=== PATIENT | female | born 1965 | race Caucasian/White ===

== ENCOUNTER 2024-05-23 10:03 | Outpatient (CLI) | payer BC ==
[2024-05-23] MEDS ORDERED: Iopamidol 30 ML ONE (10:08)
== END 2024-05-23 10:04 | disposition home or self-care (01) ==
LOC: RAD 10:03
PROVIDERS: ATTEND Internal Medicine Hematology & Oncology
DX: C22.1 Intrahepatic bile duct carcinoma (principal)
CPT/HCPCS: 36598; J1642; Q9967

== ENCOUNTER 2024-10-21 10:08 | Outpatient (CLI) | payer BC ==
[2024-10-21] MEDS ORDERED: Iopamidol 30 ML ONE (10:22)
== END 2024-10-21 10:09 | disposition home or self-care (01) ==
LOC: RAD 10:08
PROVIDERS: ATTEND Internal Medicine Hematology & Oncology
DX: Z45.2 Encounter for adjustment and management of vascular access device (principal); C22.1 Intrahepatic bile duct carcinoma
CPT/HCPCS: 36598; J1642; Q9967

== ENCOUNTER 2024-11-18 09:55 | Outpatient (CLI) | payer BC | END 2024-11-18 09:56 | disposition home or self-care (01) | LOC: RAD 09:55 | PROVIDERS: ATTEND Internal Medicine Critical Care Medicine | DX: R06.00 Dyspnea, unspecified (principal) | CPT/HCPCS: 71046 ==

== ENCOUNTER 2024-11-27 15:03 | Emergency (ER) | payer BC ==
[2024-11-27 16:23] LABS: #Basophils 0.04 10x3/uL (0.0-0.2); %Basophils 0.4 % (0.0-1.0); %Eosinophils 0.4 % (0.0-10.0); %Monocytes 9.7 % (0.0-10.0); %Neutrophils 76.8 % (42.0-75.0); Hematocrit 27.8 % (36.0-47.0); Hemoglobin 9.4 g/dL (12.0-16.0); Mean Corpuscular HGB CONC 33.8 g/dL (32.0-36.0); Mean Corpuscular Hemoglobin 31.5 pg (27.0-31.0); Mean Corpuscular Volume 93.3 fL (78.0-98.0); Platelet Count 5 10x3/uL (130-400); RBC Distribution Width 18.2 % (11.5-14.5); Red Blood Cell (RBC) Count 2.98 mill/uL (4.20-5.40)
[2024-11-27 16:30] LABS: INR-International Normal Ratio 1.8; Prothrombin Time 21.1 sec (12.0-14.7)
[2024-11-27 16:31] LABS: PTT 31.8 sec (22.9-36.1)
[2024-11-27 16:52] LABS: ALT (SGPT) 34 U/L (8-55); AST (SGOT) 95 U/L (5-34); Albumin 2.8 g/dL (3.5-5.0); Alkaline Phosphatase 261 U/L (40-110); Anion Gap 12 mmol/L (10-20); BUN (Urea Nitrogen) 14 mg/dL (9.8-20.1); Bilirubin, Total 1.6 mg/dL (0.2-1.2); Calc. Creatinine Clearance 0 mL/min (70-130); Calcium 8.2 mg/dL (7.8-10.44); Carbon Dioxide 24 mmol/L (22-29); Chloride 94 mmol/L (98-107); Estimated GFR 108; Glucose 116 mg/dL (70-105); Potassium 3.4 mmol/L (3.5-5.1); Protein, Total 5.8 g/dL (6.0-8.3); Sodium 127 mmol/L (136-145)
== END 2024-11-27 20:10 | disposition home or self-care (01) ==
LOC: ERS 15:03
DX: D69.6 Thrombocytopenia, unspecified (principal); F17.210 Nicotine dependence, cigarettes, uncomplicated; Z79.02 Long term (current) use of antithrombotics/antiplatelets; Z79.01 Long term (current) use of anticoagulants; Z79.899 Other long term (current) drug therapy
CPT/HCPCS: 36430; 80053; 85025; 85610; 85730; 86850; 86900; 86901; 99283; P9035

== ENCOUNTER 2024-11-28 12:47 | Day surgery (SDC) | payer BC ==
[2024-11-28] MEDS ORDERED: Acetaminophen 500 MG TAB PO SCH (13:15)
[2024-11-28] MEDS ORDERED: diphenhydrAMINE 25 MG CAP PO SCH (13:15)
[2024-11-28 17:06] VITALS: TEMP 97.9
[2024-11-28 17:07] VITALS: BP 109/60
== END 2024-11-28 15:35 | disposition home or self-care (01) ==
LOC: ONC/OP 12:47
PROVIDERS: ATTEND Internal Medicine Hematology & Oncology
DX: D69.6 Thrombocytopenia, unspecified (principal); D64.9 Anemia, unspecified
CPT/HCPCS: 36430; 86850; 86900; 86901; J1642; P9035

== ENCOUNTER 2024-12-03 09:42 | Outpatient (CLI) | payer BC | END 2024-12-03 09:43 | disposition home or self-care (01) | LOC: SCSMRI 09:42 | PROVIDERS: ATTEND Internal Medicine Hematology & Oncology | DX: C22.1 Intrahepatic bile duct carcinoma (principal); D70.8 Other neutropenia; G93.89 Other specified disorders of brain | CPT/HCPCS: 70553; 76376 ==